=== PATIENT | female | born 1965 ===

== ENCOUNTER 2019-02-26 05:58 | Day surgery (SDC) | payer OTHER ==
[~2019-02-26 05:58] MED LIST: FOLIC ACID1 MG PO; VASOTEC5 MG PO; ZANTAC25 MG/1 ML IJ
[2019-02-26] MEDS ORDERED: POLY119PG PO (09:07)
[2019-02-26] MEDS ORDERED: SURFAK240 M1 PO (09:07)
[2019-02-26] MEDS ORDERED: PERCOCET 5-3251 EACH PO (09:07)
== END 2019-02-26 12:22 | disposition home or self-care (01) ==
LOC: CIR.AMB 05:58 → EDBD 07:30 → ADM 07:30 → CIR.AMB 07:30
DX: K80.10 Calculus of gallbladder with chronic cholecystitis without obstruction (principal); K42.9 Umbilical hernia without obstruction or gangrene; K43.9 Ventral hernia without obstruction or gangrene